=== PATIENT | female | born 1995 | race Hispanic/Latino ===

== ENCOUNTER 2019-10-08 13:49 | Emergency (ER) | payer OTHER ==
[2019-10-08] MEDS ORDERED: SODIUM CHLORIDE 0.9% 1000ML 1,000 ML IV ONE (14:13)
[2019-10-08 14:35] LABS: BASOPHILS % (AUTO) 0.3 % (0.0-5.0); EOSINOPHILS % (AUTO) 0.7 % (0.0-8.0); HEMATOCRIT 38.1 % (36-48); LYMPHOCYTES % (AUTO) 12.9 % (21.0-51.0); MEAN CORPUSCULAR HEMOGLOBIN 27.8 pg (27.0-33.0); MEAN CORPUSCULAR HGB CONC 33.6 g/dL (32.0-36.0); MEAN CORPUSCULAR VOLUME 82.8 fL (79-99); MONOCYTES % (AUTO) 6.9 % (3.0-13.0); NEUTROPHILS % (AUTO) 78.8 % (40.0-77.0); PLATELET COUNT (AUTO) 202 K/uL (130-400); RED CELL DISTRIBUTION WIDTH 12.8 % (11.0-15.5); WHITE BLOOD COUNT (AUTO) 9.8 K/uL (4.8-10.8)
[2019-10-08 14:50] LABS: CREATININE 0.8 mg/dL (0.5-1.5); POTASSIUM 3.1 mmol/L (3.5-5.1)
[2019-10-08] MEDS ORDERED: POTASSIUM CHLORIDE 20 MEQ ERTAB PO ONE (15:02)
[2019-10-08 15:27] LABS: APPEARANCE,URINE Clear (CLEAR); BILIRUBIN,URINE Negative (NEGATIVE); COLOR,URINE Yellow (YELLOW); GLUCOSE, URINE (UA) Negative (NEGATIVE); KETONES,URINE Negative (NEGATIVE); LEUKOCYTE ESTERASE ,URINE Negative (NEGATIVE); NITRATE,URINE Negative (NEGATIVE); OCCULT BLOOD,URINE Negative (NEGATIVE); PROTEIN,URINE Negative (NEGATIVE); UROBILINOGEN,URINE 0.2 mg/dL (0.2-1.0)
== END 2019-10-08 16:32 | disposition home or self-care (01) ==
LOC: EDH 13:49
DX: O20.0 Threatened abortion (principal); O99.281 Endocrine, nutritional and metabolic diseases complicating pregnancy, first trimester; E87.6 Hypokalemia; Z3A.11 11 weeks gestation of pregnancy
CPT/HCPCS: 36415; 76801; 80048; 81003; 84702; 85025; 86900; 86901; 99284; J7030

== ENCOUNTER 2020-04-10 15:29 | Observation (INO) | payer BC, MEDICAID ==
[~2020-04-10] VITALS: Ht 157.5 cm; Wt 64.4 kg
[2020-04-10 16:19] LABS: BASOPHILS % (AUTO) 0.3 % (0.0-5.0); EOSINOPHILS % (AUTO) 0.3 % (0.0-8.0); HEMATOCRIT 33.2 % (36-48); LYMPHOCYTES % (AUTO) 12.6 % (21.0-51.0); MEAN CORPUSCULAR HEMOGLOBIN 27.1 pg (27.0-33.0); MEAN CORPUSCULAR HGB CONC 32.8 g/dL (32.0-36.0); MEAN CORPUSCULAR VOLUME 82.6 fL (79-99); MONOCYTES % (AUTO) 7.6 % (3.0-13.0); NEUTROPHILS % (AUTO) 77.9 % (40.0-77.0); PLATELET COUNT (AUTO) 134 K/uL (130-400); RED BLOOD CELL COUNT(AUTO) 4.02 MIL/uL (4.00-5.50); RED CELL DISTRIBUTION WIDTH 14.2 % (11.0-15.5); WHITE BLOOD COUNT (AUTO) 9.2 K/uL (4.8-10.8)
[2020-04-10 16:29] LABS: CREATININE 0.7 mg/dL (0.5-1.5); POTASSIUM 3.8 mmol/L (3.5-5.1)
[2020-04-10 16:32] LABS: APPEARANCE,URINE Clear (CLEAR); BILIRUBIN,URINE Negative (NEGATIVE); COLOR,URINE Yellow (YELLOW); GLUCOSE, URINE (UA) Negative (NEGATIVE); KETONES,URINE Negative (NEGATIVE); LEUKOCYTE ESTERASE ,URINE Trace (NEGATIVE); NITRATE,URINE Negative (NEGATIVE); OCCULT BLOOD,URINE Negative (NEGATIVE); PH,URINE 7.5 (5.0-8.0); PROTEIN,URINE Trace mg/dL (NEGATIVE)
[2020-04-10 16:33] LABS: INR 0.85 (0.85-1.15); PARTIAL THROMBOPLASTIN TIME 26.8 SEC (26.3-35.5); PROTHROMBIN TIME 9.2 SEC (9.6-11.6)
[2020-04-10 16:34] LABS: ALBUMIN 2.7 g/dL (3.5-5.0); BILIRUBIN,TOTAL 0.3 mg/dL (0.2-1.0); TOTAL PROTEIN, SERUM 6.7 g/dL (6.0-8.3); URIC ACID 4.6 mg/dL (2.6-7.2)
[2020-04-10 16:45] LABS: BACTERIA,URINE Few /HPF (None Seen); RBC,URINE None Seen /HPF (0-1); SQUAMOUS EPITHELIAL CELL,UR 0-2 /HPF (0-2)
[2020-04-10 17:20] VITALS: BP 140/65
== END 2020-04-10 17:31 | disposition home or self-care (01) ==
LOC: EDH 15:29 → LDH 15:42
PROVIDERS: ADMIT Obstetrics & Gynecology; ATTEND Obstetrics & Gynecology
DX: O13.3 Gestational [pregnancy-induced] hypertension without significant proteinuria, third trimester (principal); Z3A.38 38 weeks gestation of pregnancy
CPT/HCPCS: 36415; 80053; 81001; 84550; 85025; 85384; 85610; 85730; 86701; 87390; 99283; G0378 ×2

== ENCOUNTER 2020-04-21 19:54 | Inpatient (IN) | payer BC ==
[~2020-04-21] VITALS: Ht 157.5 cm; Wt 65.8 kg
[2020-04-21] MEDS ORDERED: LACTATED RINGERS 1000ML 1,000 ML IV PRN (21:03)
[2020-04-21] MEDS ORDERED: LACTATED RINGERS 1000ML 1,000 ML IV ONE (21:12)
[2020-04-21] MEDS ORDERED: MEPERIDINE-PF 50 MG/ML SYG IVP PRN (21:15)
[2020-04-21] MEDS ORDERED: PROMETHAZINE HCL 25 MG/ML 1ML AMPULE IM PRN (21:15)
[2020-04-21] MEDS ORDERED: OXYTOCIN 10 USP UNITS/ML 20 UNIT in LACTATED RINGERS 1000ML 1,000 ML IV SCH (21:15)
[2020-04-21] MEDS ORDERED: NALOXONE HCL 0.4 MG/1 ML ML IV PRN (21:15)
[2020-04-21] MEDS ORDERED: LACTATED RINGERS 500 ML 500 ML IV PRN (21:15)
[2020-04-21] MEDS ORDERED: ROPIVACAINE 0.2% 100ML VIAL 100 ML EP SCH (21:15)
[2020-04-21] MEDS ORDERED: EPHEDRINE SULFATE 50 MG/ML AMPULE IVP PRN (21:15)
[2020-04-21 21:54] LABS: HEMATOCRIT 32.5 % (36-48); MEAN CORPUSCULAR HGB CONC 32.9 g/dL (32.0-36.0); MEAN CORPUSCULAR VOLUME 81.9 fL (79-99); RED BLOOD CELL COUNT(AUTO) 3.97 MIL/uL (4.00-5.50); RED CELL DISTRIBUTION WIDTH 13.9 % (11.0-15.5); WHITE BLOOD COUNT (AUTO) 10.8 K/uL (4.8-10.8)
[2020-04-22] MEDS ORDERED: OXYTOCIN-LR 20 UNITS/1000 ML 1,000 ML IV ONE ×2 (03:40→17:40)
[2020-04-22] MEDS ORDERED: FENTANYL CITRATE PF 50 MCG/1 ML 2ML VIAL ONE ×2 (12:45→19:54)
[2020-04-22] MEDS ORDERED: LIDOCAINE HCL 1% 20 ML VIAL ONE (21:49)
[2020-04-22] MEDS ORDERED: WITCH HAZEL 1 PAD TP PRN (22:45)
[2020-04-22] MEDS ORDERED: ACETAMINOPHEN-CODEINE 300/30MG TAB PO PRN (22:45)
[2020-04-22] MEDS ORDERED: ACETAMINOPHEN 325 MG TAB PO PRN (22:45)
[2020-04-22] MEDS ORDERED: LANOLIN 30GM OINTMENT TP PRN (22:45)
[2020-04-22] MEDS ORDERED: BENZOCAINE/LANOLIN/ALOE VERA 60 ML AEROSOL TP PRN (22:45)
[2020-04-22] MEDS: OXYTOCIN-LR 20 UNITS/1000 ML 1,000 ML IV SCH (23:19)
[2020-04-22] MEDS: IBUPROFEN 600 MG TABLET PO PRN (23:38)
[2020-04-23 01:02] VITALS: BP 134/71
[2020-04-23] MEDS ORDERED: PREN1COM14 PO (02:21)
[2020-04-23] MEDS ORDERED: FERR-82 PO (02:21)
[2020-04-23 04:04] VITALS: BP 140/72
--- NOTE | 2020-04-23 04:05 | NUR ---
Pt holding infant preparing for feeding; denies pain or discomfort at present, states "i just feel sore"; [email or web address] with small rubra noted. Pt report lower abd cramping, informing normal sensation due to & possible full bladder, encouraging frequent urination and offering po analgesia for discomfort, pt refusing analgesia, states "i will wait for the Motrin"
--- NOTE | 2020-04-23 04:30 | NUR ---
Assisting to bathroom, instructing on tanya care with warm water & wipes provided; explaining normal rubra that decreases each day, instructing to call if blood clots noted or increase rubra, soaking a tanya pad within an hour. Reinforcing teaching on use of Dermaplast, Tucks & encouraging to change tanya pad & do tanya care with each void. Pt voices understanding, restates information adequately & agrees to instructions.
[2020-04-23] MEDS: IBUPROFEN 600 MG TABLET PO PRN ×2 (05:04→12:34)
--- NOTE | 2020-04-23 06:05 | NUR ---
Pt denies pain or discomfort at present; IV discontinued, pressure applied, and bandaide to site; site remains without redness or edema, pt tolerating procedure with minimal discomfort noted. Encouraging increase fluids, explaining increase in fluids will help pt remain hydrated helping & rest. Pt voices understanding & agrees to teaching.
[2020-04-23] MEDS: DOCUSATE SODIUM 100 MG CAP PO SCH ×2 (08:31→21:07)
[2020-04-23 11:14] VITALS: BP 109/54
[2020-04-23 16:17] VITALS: BP 125/70
[2020-04-23 19:30] VITALS: BP 112/66
[2020-04-23] MEDS: OXYTOCIN-LR 20 UNITS/1000 ML 1,000 ML IV SCH (20:04)
[2020-04-23 23:07] VITALS: BP 112/62
[2020-04-23] MEDS ORDERED: DIPH,PERTUSS(ACELL),TET VAC/PF 0.5 ML VIAL IM ONE (23:30)
[2020-04-24 03:25] VITALS: BP 127/57
--- NOTE | 2020-04-24 07:20 | NUR ---
PATIENT STABLE AND C/O MILD UTERINE CRAMPING. WILL MEDICATE WITH MOTRIN FOR DISCOMFORT. PATIENT STABLE AND VITAL SIGNS WNL.
[2020-04-24 07:29] VITALS: BP 123/72
[2020-04-24] MEDS: DOCUSATE SODIUM 100 MG CAP PO SCH (08:35)
[2020-04-24] MEDS: IBUPROFEN 600 MG TABLET PO PRN (08:37)
--- NOTE | 2020-04-24 09:50 | NUR ---
DISCHARGE INSTRUCTIONS GIVEN AND PATIENT VERBALIZES UNDERSTANDING INSTRUCTIONS GIVEN. DENIES PAIN AT THIS TIME.
[2020-04-24 11:10] VITALS: BP 99/55
--- NOTE | 2020-04-24 14:50 | NUR ---
PATIENT WAS TAKEN VIA W/C TO [facility]ILY [facility] CARRYING BABY IN ARMS AND WAS DISCHARGED TO HER SPOUSE WITH BABY BOTH IN STABLE CONDITION. PATIENT DENIES PAIN OR ANY PROBLEMS AT THIS TIME.
[2020-04-29 09:14] LABS: HEPATITIS Bs ANTIGEN SCREEN P Negative (Negative)
== END 2020-04-24 14:50 | disposition home or self-care (01) | DRG 807 ==
LOC: EDH 19:54 → LDH 20:13 → OBSVTOIN 20:13 → WSH 04-23 00:45
PROVIDERS: ADMIT Obstetrics & Gynecology; ATTEND Obstetrics & Gynecology
PROC: 10D07Z6 Extraction of Products of Conception, Vacuum, Via Natural or Artificial Opening (ICD-10-PCS; principal; 2020-04-22)
PROC: 3E0234Z Introduction of Serum, Toxoid and Vaccine into Muscle, Percutaneous Approach (ICD-10-PCS; 2020-04-22)
PROC: 0W8NXZZ Division of Female Perineum, External Approach (ICD-10-PCS; 2020-04-22)
PROC: 3E0R3BZ Introduction of Anesthetic Agent into Spinal Canal, Percutaneous Approach (ICD-10-PCS; 2020-04-22)
PROC: 00HU33Z Insertion of Infusion Device into Spinal Canal, Percutaneous Approach (ICD-10-PCS; 2020-04-22)
DX: O75.81 Maternal exhaustion complicating labor and delivery (principal); Z37.0 Single live birth; Z3A.39 39 weeks gestation of pregnancy; Z23 Encounter for immunization
CPT/HCPCS: 36415; 85027; 86592; 86850; 86900; 86901; 87340; 90715; A4314; G0378; J2175; J2550; J2590; J2795; J3010; J7120

== ENCOUNTER 2022-09-20 21:54 | Emergency (ER) | payer BC ==
[~2022-09-20] VITALS: Ht 157.5 cm; Wt 49.9 kg
[~2022-09-20 21:54] MED LIST: FERR-82 PO; PREN1COM14 PO
[2022-09-20 23:30] LABS: BASOPHILS % (AUTO) 0.4 % (0.0-5.0); EOSINOPHILS % (AUTO) 0.7 % (0.0-8.0); HEMATOCRIT 40.6 % (36-48); LYMPHOCYTES % (AUTO) 21.2 % (21.0-51.0); MEAN CORPUSCULAR HEMOGLOBIN 27.4 pg (27.0-33.0); MONOCYTES % (AUTO) 6.9 % (3.0-13.0); NEUTROPHILS % (AUTO) 70.6 % (40.0-77.0); PLATELET COUNT (AUTO) 225 K/uL (130-400); RED BLOOD CELL COUNT(AUTO) 4.89 MIL/uL (4.00-5.50); RED CELL DISTRIBUTION WIDTH 13.1 % (11.0-15.5); WHITE BLOOD COUNT (AUTO) 9.1 K/uL (4.8-10.8)
[2022-09-20 23:32] LABS: BILIRUBIN,URINE NEGATIVE (NEGATIVE); COLOR,URINE LIGHT-YELLOW (YELLOW); GLUCOSE, URINE (UA) NEGATIVE (NEGATIVE); KETONES,URINE 10 mg/dL (NEGATIVE); LEUKOCYTE ESTERASE ,URINE 25 Leu/uL (NEGATIVE); NITRATE,URINE NEGATIVE (NEGATIVE); OCCULT BLOOD,URINE LARGE (NEGATIVE); PROTEIN,URINE 20 mg/dL (NEGATIVE); UROBILINOGEN,URINE 0.2 mg/dL (0.2-1.0)
[2022-09-20 23:44] LABS: APPEARANCE,URINE CLOUDY (CLEAR); CREATININE 0.8 mg/dL (0.5-1.5); POTASSIUM 3.4 mmol/L (3.5-5.1)
[2022-09-20 23:45] LABS: MUCUS,URINE RARE LPF (None Seen); RBC,URINE TNTC /HPF (0-1); SQUAMOUS EPITHELIAL CELL,UR RARE /HPF (0-2)
[2022-09-20 23:49] LABS: ALBUMIN 3.8 g/dL (3.5-5.0)
[2022-09-21] MEDS ORDERED: CEPH500B PO (01:29)
[2022-09-21 01:40] VITALS: BP 107/73
== END 2022-09-21 01:42 | disposition home or self-care (01) ==
LOC: EDH 21:54
DX: O23.31 Infections of other parts of urinary tract in pregnancy, first trimester (principal); N39.0 Urinary tract infection, site not specified; Z3A.08 8 weeks gestation of pregnancy
CPT/HCPCS: 36415; 76801; 80053; 81001; 84703; 85025; 86900; 86901; 87088